=== PATIENT | female | born 1980 | race Caucasian/White ===

== ENCOUNTER 2018-09-19 19:16 | Emergency (ER) | payer OTHER ==
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
[2018-09-19] MEDS ORDERED: NAPROXEN 250 MG TABLET PO ONE (21:58)
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
[2018-09-19 22:20] VITALS: BP 113/79
== END 2018-09-19 22:19 | disposition home or self-care (01) ==
LOC: ER 19:16
DX: S69.91XA Unspecified injury of right wrist, hand and finger(s), initial encounter (principal); S69.92XA Unspecified injury of left wrist, hand and finger(s), initial encounter; M79.641 Pain in right hand; M79.642 Pain in left hand; M54.2 Cervicalgia; M54.9 Dorsalgia, unspecified; V49.9XXA Car occupant (driver) (passenger) injured in unspecified traffic accident, initial encounter; W22.10XA Striking against or struck by unspecified automobile airbag, initial encounter; Y92.410 Unspecified street and highway as the place of occurrence of the external cause
CPT/HCPCS: 99283